=== PATIENT | female | born 1965 | race Two or more races ===

== ENCOUNTER 2022-12-24 18:01 | Emergency (ER) | payer OTHER ==
[~2022-12-24] VITALS: Ht 167.6 cm; Wt 72.6 kg
== END 2022-12-24 20:22 | disposition home or self-care (01) ==
LOC: ER 18:01
PROVIDERS: General Practice
DX: G43.909 Migraine, unspecified, not intractable, without status migrainosus (principal); I10 Essential (primary) hypertension